=== PATIENT | male | born 1930 | race Caucasian/White ===

== ENCOUNTER → 2017-05-20 | Outpatient (CLI) | payer MEDICARE | LOC: LGSMG 14:36 | DX: Z00.00 Encounter for general adult medical examination without abnormal findings (principal); I48.91 Unspecified atrial fibrillation; N18.4 Chronic kidney disease, stage 4 (severe); Z79.899 Other long term (current) drug therapy; R53.83 Other fatigue; E78.00 Pure hypercholesterolemia, unspecified; D53.9 Nutritional anemia, unspecified; E87.2 Acidosis; R80.9 Proteinuria, unspecified; E53.8 Deficiency of other specified B group vitamins; I12.9 Hypertensive chronic kidney disease with stage 1 through stage 4 chronic kidney disease, or unspecified chronic kidney disease; E11.22 Type 2 diabetes mellitus with diabetic chronic kidney disease ==